=== PATIENT | female | born 1935 | race Caucasian/White ===

== ENCOUNTER 2021-06-21 05:05 | Observation (INO) | payer MEDICARE, OTHER ==
[~2021-06-21] VITALS: Ht 149.9 cm; Wt 80.4 kg
[~2021-06-21 05:05] MED LIST: ACEBUTCAFT PO; AMLO5 PO; CALCIUM 1,0001 EACH; CEPH500; CEPH500 PO; FURO40 PO; HYDACE5 PO; Hydrochloroth12.5 MG PO; LABE200 PO; LISI20 PO; LORA.5 PO; NAPR550 PO; Norco 5-325 Ta1 EACH PO; ONDA4ODT MM; OXYACE5T PO; POTA10T PO; Stool Softener100 MG; TEMA15 PO; THERA1 EACH PO; WARF2.5 PO; WARF5 PO
[2021-06-21 05:32] LABS: BASOPHILS ABSOLUTE AUTO 0.04 K/mm3 (0.00-0.23); BASOPHILS PERCENT AUTO 0 % (0-2); EOSINOPHILS ABSOLUTE AUTO 0.06 K/mm3 (0.00-0.68); EOSINOPHILS PERCENT AUTO 1 % (0-6); Hematocrit 38.9 % (33.0-51.0); Hemoglobin 12.9 g/dL (11.5-16.0); IMMATURE GRAN ABSOLUTE AUTO 0.05 K/mm3 (0.00-0.10); IMMATURE GRAN PERCENT AUTO 1 % (0-1); LYMPHOCYTES PERCENT AUTO 11 % (21-46); MONOCYTES ABSOLUTE AUTO 0.75 K/mm3 (0.16-1.47); MONOCYTES PERCENT AUTO 7 % (4-13); Mean Corpuscular HGB 30.6 pg (26.0-34.0); Mean Corpuscular HGB Conc 33.2 g/dL (31.5-36.5); Mean Corpuscular Volume 92 fL (80-100); Mean Platelet Volume 10.5 fL (9.1-12.4); NEUTROPHILS ABSOLUTE AUTO 8.99 K/mm3 (1.96-9.15); NEUTROPHILS PERCENT AUTO 81 % (41-73); Platelet Count 224 K/mm3 (150-400); RDW Coefficient Variation 13.5 % (11.7-14.2); RDW Standard Deviation 45.9 fL (35.1-46.3); Red Blood Cell Count 4.21 M/mm3 (3.80-5.20); White Blood Cell Count 11.09 K/mm3 (4.00-11.30)
[2021-06-21 05:49] LABS: International Normalized Ratio 2.21
[2021-06-21 05:50] LABS: Alanine Aminotransfer (ALT/SGP 20 U/L (12-78); Albumin, Blood 3.3 g/dL (3.4-5.0); Albumin/Globulin Ratio 0.8 (0.8-1.8); Alk Phos 87 U/L (50-136); Anion Gap 6 mmol/L (6-16); Aspartate Aminotrans (AST/SGOT 47 U/L (12-37); Bilirubin, Total 1.2 mg/dL (0.1-1.0); Blood Urea Nitrogen 12 mg/dL (8-24); Bun/Creatinine Ratio 14.7 (12.0-20.0); CO2, Blood 26 mmol/L (21-32); Chloride, Blood 110 mmol/L (98-108); Creatinine, Blood 0.82 mg/dL (0.40-1.00); Globulin, Blood 3.9 g/dL (2.2-4.0); Glomerular Filtration Rate >60 (60-); Glucose, Blood 126 mg/dL (70-99); Potassium, Blood 4.6 mmol/L (3.5-5.5); Sodium, Blood 142 mmol/L (136-145); Total Protein, Blood 7.2 g/dL (6.4-8.2)
[2021-06-21] MEDS ORDERED: MONT10T PO (15:05)
--- NOTE | 2021-06-21 18:28 | NUR ---
SHIFT SUMMARY THE PATIENT IS ALERT AND ORIENTED X4, PLEASANT AND COOPERATIVE WITH CARE. THE PATIENT ARRIVED ON THE MEDICAL FLOOR THIS MORNING. THE PATIENT IS A SBA TO THE BS. ON 3LPM OF OXYGEN CURRENTLY. TELE RUNNING AFIB AT 86. WARFARIN GIVEN THIS EVENING. THE PATIENT CALLS APPROPRIATELY. NO ACUTE CHANGES AT THIS TIME. CALL LIGHT WITHIN REACH. FAMILY AT BEDSIDE. THIS NURSE WILL CONTINUE CARE FOR THE PATIENT UNTIL SHIFT REPORT IS GIVEN TO ONCOMING NURSE.
--- NOTE | 2021-06-22 04:46 | NUR ---
Patient remained on 3L NC saturations 94-95%. Does complain of SOB on exertion. Lorazepam PRN given per pt request as she states she regularly takes at home. On telemetry a-fib with occasional periods of nonsustained RVR HR 140s-150s (per telephone answering service operator) on exertion, otherwise no new changes.
[2021-06-22 05:10] LABS: International Normalized Ratio 2.48; Prothrombin Time Results 24.5 Sec (9.7-11.5)
[2021-06-22 05:13] LABS: Anion Gap 6 mmol/L (6-16); Blood Urea Nitrogen 15 mg/dL (8-24); Bun/Creatinine Ratio 17.1 (12.0-20.0); CO2, Blood 29 mmol/L (21-32); Calcium, Blood 8.8 mg/dL (8.5-10.1); Chloride, Blood 106 mmol/L (98-108); Creatinine, Blood 0.88 mg/dL (0.40-1.00); Glomerular Filtration Rate >60 (60-); Glucose, Blood 98 mg/dL (70-99); Sodium, Blood 141 mmol/L (136-145)
[2021-06-22] MEDS ORDERED: Ocuvite Preser1 EACH PO (12:28)
[2021-06-22] MEDS ORDERED: CENTRUM SILVER1 EAC2 PO (12:28)
--- NOTE | 2021-06-22 14:56 | NUR ---
PATIENT DOING WELL TODAY, NO SOB, AMBULATING WELL. RT COMPLETED HOME 02 EVAL, NO OXYGEN NEEDED AT HOME. PT DISCHARGED TODAY. REVIEWED DISCHARGE SUMMARY, PT/DAUGHTER VERBILIZED UNDERSTANDING. PT LEFT FLOOR AT 1430.
== END 2021-06-22 14:45 | disposition home or self-care (01) ==
LOC: ER 05:05 → MEDS 08:01
PROVIDERS: Emergency Medicine; Nurse Practitioner Acute Care; ADMIT Hospitalist
DX: I11.0 Hypertensive heart disease with heart failure (principal); I50.9 Heart failure, unspecified; I48.91 Unspecified atrial fibrillation; I44.7 Left bundle-branch block, unspecified; E66.01 Morbid (severe) obesity due to excess calories; J96.01 Acute respiratory failure with hypoxia; I27.20 Pulmonary hypertension, unspecified; Z79.01 Long term (current) use of anticoagulants
CPT/HCPCS: 36415; 71045; 80048; 80053; 83735; 83880; 84443; 84484; 85025; 85610; 93005; 93010; 93306; 94760; 94761; 96374; 96375; 96376; 99285-25; A9270; G0378; J1940

== ENCOUNTER 2023-12-17 08:54 | Emergency (ER) | payer OTHER, MEDICARE ==
[~2023-12-17] VITALS: Ht 142.2 cm; Wt 78.9 kg
[~2023-12-17 08:54] MED LIST changes: +CENTRUM SILVER1 EAC2 PO; +MONT10T PO; +Ocuvite Preser1 EACH PO
[2023-12-17 09:13] VITALS: BP 158/130
[2023-12-17] MEDS ORDERED: HYDROcodone 5-APAP 325 TAB PO ONE (09:20)
[2023-12-17] MEDS ORDERED: Norco 5-325 Ta1 EACH PO (11:04)
== END 2023-12-17 12:05 | disposition home or self-care (01) ==
LOC: ER 08:54
DX: S22.32XA Fracture of one rib, left side, initial encounter for closed fracture (principal); I48.91 Unspecified atrial fibrillation; I10 Essential (primary) hypertension; W01.190A Fall on same level from slipping, tripping and stumbling with subsequent striking against furniture, initial encounter; Z85.038 Personal history of other malignant neoplasm of large intestine; Z79.01 Long term (current) use of anticoagulants; Z79.899 Other long term (current) drug therapy
CPT/HCPCS: 71046; 71100; 99283-25; A9270

== ENCOUNTER 2024-03-11 10:04 | Observation (INO) | payer MEDICARE, OTHER ==
[~2024-03-11] VITALS: Ht 149.9 cm; Wt 75.2 kg
[2024-03-11] MEDS ORDERED: NS 1,000 ML IV SCH ×3 (11:10→18:00)
[2024-03-11 11:36] LABS: BASOPHILS ABSOLUTE AUTO 0.02 K/mm3 (0.00-0.23); BASOPHILS PERCENT AUTO 0 % (0-2); EOSINOPHILS ABSOLUTE AUTO 0.04 K/mm3 (0.00-0.68); EOSINOPHILS PERCENT AUTO 0 % (0-6); Hematocrit 47.8 % (33.0-51.0); Hemoglobin 15.9 g/dL (11.5-16.0); IMMATURE GRAN ABSOLUTE AUTO 0.05 K/mm3 (0.00-0.10); IMMATURE GRAN PERCENT AUTO 1 % (0-1); LYMPHOCYTES ABSOLUTE AUTO 1.56 K/mm3 (0.84-5.20); LYMPHOCYTES PERCENT AUTO 15 % (21-46); MONOCYTES ABSOLUTE AUTO 0.65 K/mm3 (0.16-1.47); MONOCYTES PERCENT AUTO 6 % (4-13); Mean Corpuscular HGB 31.5 pg (26.0-34.0); Mean Corpuscular HGB Conc 33.3 g/dL (31.5-36.5); Mean Corpuscular Volume 95 fL (80-100); Mean Platelet Volume 9.3 fL (9.1-12.4); NEUTROPHILS ABSOLUTE AUTO 7.99 K/mm3 (1.96-9.15); NEUTROPHILS PERCENT AUTO 78 % (41-73); Platelet Count 255 K/mm3 (150-400); RDW Coefficient Variation 12.7 % (11.7-14.2); RDW Standard Deviation 44.8 fL (35.1-46.3); Red Blood Cell Count 5.05 M/mm3 (3.80-5.20); White Blood Cell Count 10.31 K/mm3 (4.00-11.30)
[2024-03-11 12:13] LABS: Albumin, Blood 3.7 g/dL (3.4-5.0); Albumin/Globulin Ratio 0.8 (0.8-1.8); Bilirubin, Total 0.7 mg/dL (0.1-1.0); Bun/Creatinine Ratio 28.1 (12.0-20.0); Calcium, Blood 9.9 mg/dL (8.5-10.1); Creatinine, Blood 2.1 mg/dL (0.40-1.00); Globulin, Blood 4.6 g/dL (2.2-4.0); Magnesium, Blood 2.4 mg/dL (1.6-2.4); Potassium, Blood 5.8 mmol/L (3.5-5.5); Total Protein, Blood 8.3 g/dL (6.4-8.2)
[2024-03-11] MEDS ORDERED: Insulin Regular 100 Unit/ML 1ML Dose IV ONE (14:55)
[2024-03-11] MEDS ORDERED: Sodium Bicarb 8.4% 1 MEQ/ML 50 ML Vial IV ONE (14:55)
[2024-03-11] MEDS ORDERED: Calcium Gluconate 10% 100 MG/ML INJ IV ONE (14:55)
[2024-03-11] MEDS ORDERED: Dextrose 50% 50 ML Syringe IV ONE (15:00)
[2024-03-11] MEDS ORDERED: Sodium Zirconium Cyclosilicate 10 GM Packet PO ONE (15:00)
[2024-03-11] MEDS ORDERED: Dextrose 50% 50 ML Vial IV ONE (15:25)
[2024-03-11] MEDS ORDERED: FLU VACC TS2024-25(6MOS UP)/PF 45 MCG/0.5 ML SYRINGE IM PRN (17:10)
[2024-03-11] MEDS ORDERED: Ondansetron 4 MG TAB PO PRN (17:10)
[2024-03-11] MEDS ORDERED: Metoprolol Tartrate 25 MG Tab PO SCH (18:00)
[2024-03-11] MEDS ORDERED: METO25ER PO (20:41)
[2024-03-11] MEDS ORDERED: METO50ER PO (20:42)
[2024-03-11] MEDS ORDERED: LOSA50 PO (20:44)
[2024-03-11] MEDS ORDERED: SPIR25 PO (20:46)
[2024-03-11] MEDS ORDERED: LORazepam 0.5 MG Tab PO SCH (21:00)
[2024-03-11 21:30] VITALS: BP 135/116
[2024-03-11 21:36] VITALS: BP 148/75
[2024-03-12 02:51] LABS: BASOPHILS ABSOLUTE AUTO 0.03 K/mm3 (0.00-0.23); BASOPHILS PERCENT AUTO 0 % (0-2); EOSINOPHILS ABSOLUTE AUTO 0.08 K/mm3 (0.00-0.68); EOSINOPHILS PERCENT AUTO 1 % (0-6); Hematocrit 42.5 % (33.0-51.0); Hemoglobin 14.2 g/dL (11.5-16.0); IMMATURE GRAN ABSOLUTE AUTO 0.04 K/mm3 (0.00-0.10); IMMATURE GRAN PERCENT AUTO 0 % (0-1); LYMPHOCYTES ABSOLUTE AUTO 1.96 K/mm3 (0.84-5.20); LYMPHOCYTES PERCENT AUTO 21 % (21-46); MONOCYTES ABSOLUTE AUTO 0.88 K/mm3 (0.16-1.47); MONOCYTES PERCENT AUTO 9 % (4-13); Mean Corpuscular HGB 31.5 pg (26.0-34.0); Mean Corpuscular HGB Conc 33.4 g/dL (31.5-36.5); Mean Corpuscular Volume 94 fL (80-100); Mean Platelet Volume 9.5 fL (9.1-12.4); NEUTROPHILS ABSOLUTE AUTO 6.53 K/mm3 (1.96-9.15); NEUTROPHILS PERCENT AUTO 69 % (41-73); Platelet Count 219 K/mm3 (150-400); RDW Coefficient Variation 12.6 % (11.7-14.2); RDW Standard Deviation 43.9 fL (35.1-46.3); Red Blood Cell Count 4.51 M/mm3 (3.80-5.20); White Blood Cell Count 9.52 K/mm3 (4.00-11.30)
[2024-03-12 03:19] LABS: Albumin, Blood 3.2 g/dL (3.4-5.0); Albumin/Globulin Ratio 0.8 (0.8-1.8); Bilirubin, Total 0.4 mg/dL (0.1-1.0); Calcium, Blood 9.5 mg/dL (8.5-10.1); Creatinine, Blood 1.5 mg/dL (0.40-1.00); Globulin, Blood 4.1 g/dL (2.2-4.0); Total Protein, Blood 7.3 g/dL (6.4-8.2)
[2024-03-12 05:36] VITALS: BP 146/75
[2024-03-12 07:53] VITALS: BP 166/139
[2024-03-12 07:57] VITALS: BP 135/78
[2024-03-12] MEDS ORDERED: Warfarin Sodium 2.5 MG Tab PO SCH (09:00)
[2024-03-12] MEDS ORDERED: Metoprolol Tartrate 25 MG Tab PO SCH (09:00)
[2024-03-12] MEDS ORDERED: Multivitamins/Minerals 1 Tab PO SCH (09:17)
[2024-03-12] MEDS ORDERED: [UNRECOGNIZED DRUG - OTHER] PO SCH (09:18)
[2024-03-12 10:37] LABS: International Normalized Ratio 2.09; Prothrombin Time Results 21.2 Sec (9.7-11.5)
[2024-03-12 13:09] LABS: Bun/Creatinine Ratio 31.5 (12.0-20.0); Creatinine, Blood 1.24 mg/dL (0.40-1.00); Potassium, Blood 4.7 mmol/L (3.5-5.5)
--- NOTE | 2024-03-12 17:32 | NUR ---
DISCHARGE NOTE PATIENT A/OX4, ABLE TO MAKE NEEDS KNOWN. PLEASANT AND COOPERATVIE WITH STAFF. STAND BY ASSIST WITH AMBULATION. DISCHARGE INSTRUCTIONS DISCUSSED WITH PATIENT AND HER DAUGHTER WHO PATIENT STATES "HANDLES HER MEDS". PATIENT ADN DAUGHTER AGREEABLE TO DISCHAREG PLAN. NO OTHER CONCERNS AT THIS TIME. IVs REMOVED PRIOR TO DISCHARGE. PATIENT ASSISTED TO FAMILY VEHICLE VIA WHEELCHAIR.
[2024-03-12] MEDS ORDERED: Warfarin Sodium 2.5 MG Tab PO ONE (18:00)
== END 2024-03-12 16:16 | disposition home or self-care (01) ==
LOC: ER 10:04 → ERHOLD 10:05 → MEDS 21:16 → ENPENDDIS 03-12 14:38 → MEDS 03-12 16:16
PROVIDERS: Student in an Organized Health Care Education/Training Program; ADMIT Internal Medicine
DX: N17.9 Acute kidney failure, unspecified (principal); E87.5 Hyperkalemia; I10 Essential (primary) hypertension; I48.91 Unspecified atrial fibrillation; Z66 Do not resuscitate; Z79.01 Long term (current) use of anticoagulants; Z79.899 Other long term (current) drug therapy; Z90.49 Acquired absence of other specified parts of digestive tract; Z90.710 Acquired absence of both cervix and uterus
CPT/HCPCS: 36415; 80048; 80053; 82947; 83735; 85025; 85610; 93005; 93010; 96361; 96374; 96375; 99285-25; A9270; G0378; J0612; J1815; J7030; J7799

== ENCOUNTER 2024-05-13 20:04 | Emergency (ER) | payer MEDICARE, OTHER ==
[~2024-05-13] VITALS: Ht 160 cm; Wt 99.8 kg
[~2024-05-13 20:04] MED LIST changes: +LOSA50 PO; +METO25ER PO; +METO50ER PO; +SPIR25 PO
[2024-05-13 20:45] LABS: BASOPHILS ABSOLUTE AUTO 0.05 K/mm3 (0.00-0.23); BASOPHILS PERCENT AUTO 1 % (0-2); EOSINOPHILS ABSOLUTE AUTO 0.18 K/mm3 (0.00-0.68); EOSINOPHILS PERCENT AUTO 2 % (0-6); Hematocrit 42.2 % (33.0-51.0); Hemoglobin 13.8 g/dL (11.5-16.0); IMMATURE GRAN ABSOLUTE AUTO 0.04 K/mm3 (0.00-0.10); IMMATURE GRAN PERCENT AUTO 0 % (0-1); LYMPHOCYTES ABSOLUTE AUTO 2.44 K/mm3 (0.84-5.20); LYMPHOCYTES PERCENT AUTO 24 % (21-46); MONOCYTES ABSOLUTE AUTO 1.12 K/mm3 (0.16-1.47); MONOCYTES PERCENT AUTO 11 % (4-13); Mean Corpuscular HGB 31.1 pg (26.0-34.0); Mean Corpuscular HGB Conc 32.7 g/dL (31.5-36.5); Mean Corpuscular Volume 95 fL (80-100); Mean Platelet Volume 9.3 fL (9.1-12.4); NEUTROPHILS ABSOLUTE AUTO 6.23 K/mm3 (1.96-9.15); NEUTROPHILS PERCENT AUTO 62 % (41-73); Platelet Count 257 K/mm3 (150-400); RDW Coefficient Variation 13.6 % (11.7-14.2); RDW Standard Deviation 47.2 fL (35.1-46.3); Red Blood Cell Count 4.44 M/mm3 (3.80-5.20); White Blood Cell Count 10.06 K/mm3 (4.00-11.30)
[2024-05-13 21:13] LABS: Albumin, Blood 3.5 g/dL (3.4-5.0); Albumin/Globulin Ratio 0.8 (0.8-1.8); Bilirubin, Total 0.4 mg/dL (0.1-1.0); Globulin, Blood 4.2 g/dL (2.2-4.0); Potassium, Blood 3.6 mmol/L (3.5-5.5); Total Protein, Blood 7.7 g/dL (6.4-8.2)
[2024-05-13 22:17] LABS: Source, Urine Clean Catch
[2024-05-13 22:20] LABS: Appearance, Urine Hazy (Clear); Bilirubin, Urine Neg (Neg); Blood, Urine 1+ (Neg); Color, Urine Yellow (P-Yellow); Glucose Qualitative, Urine Neg (Neg); Ketones, Urine Neg (Neg); Leukocyte Esterase, Urine 3+ (Neg); Nitrite, Urine Neg (Neg); Protein, Urine Neg (Neg); Urobilinogen, Urine NORM (Normal)
[2024-05-13 22:29] LABS: Bacteria Many /hpf; Squamous Epithelial Cells Mod /hpf (Few)
[2024-05-13] MEDS ORDERED: Cephalexin Monohydrate 500 MG Cap PO ONE (22:45)
[2024-05-13] MEDS ORDERED: CEPH500 PO (22:48)
[2024-05-13 23:00] VITALS: BP 192/117
== END 2024-05-13 23:12 | disposition home or self-care (01) ==
LOC: ER 20:04
PROVIDERS: Student in an Organized Health Care Education/Training Program
DX: G93.40 Encephalopathy, unspecified (principal); N30.00 Acute cystitis without hematuria; E87.1 Hypo-osmolality and hyponatremia; I10 Essential (primary) hypertension; I48.91 Unspecified atrial fibrillation; Z79.899 Other long term (current) drug therapy; Z79.01 Long term (current) use of anticoagulants
CPT/HCPCS: 80053; 81001; 85025; 87086; 93005; 93010; 99285-25; A9270

== ENCOUNTER 2024-05-23 13:51 | Emergency (ER) | payer MEDICARE, OTHER ==
[~2024-05-23] VITALS: Ht 149.9 cm; Wt 77.1 kg
[2024-05-23 15:11] LABS: BASOPHILS ABSOLUTE AUTO 0.04 K/mm3 (0.00-0.23); BASOPHILS PERCENT AUTO 0 % (0-2); EOSINOPHILS ABSOLUTE AUTO 0.12 K/mm3 (0.00-0.68); EOSINOPHILS PERCENT AUTO 1 % (0-6); Hematocrit 42.6 % (33.0-51.0); IMMATURE GRAN ABSOLUTE AUTO 0.03 K/mm3 (0.00-0.10); IMMATURE GRAN PERCENT AUTO 0 % (0-1); LYMPHOCYTES ABSOLUTE AUTO 1.75 K/mm3 (0.84-5.20); LYMPHOCYTES PERCENT AUTO 19 % (21-46); MONOCYTES ABSOLUTE AUTO 0.69 K/mm3 (0.16-1.47); MONOCYTES PERCENT AUTO 7 % (4-13); Mean Corpuscular HGB 31.3 pg (26.0-34.0); Mean Corpuscular HGB Conc 32.9 g/dL (31.5-36.5); Mean Corpuscular Volume 95 fL (80-100); Mean Platelet Volume 9.5 fL (9.1-12.4); NEUTROPHILS ABSOLUTE AUTO 6.72 K/mm3 (1.96-9.15); NEUTROPHILS PERCENT AUTO 72 % (41-73); Platelet Count 215 K/mm3 (150-400); RDW Coefficient Variation 13.5 % (11.7-14.2); RDW Standard Deviation 47.7 fL (35.1-46.3); Red Blood Cell Count 4.47 M/mm3 (3.80-5.20); White Blood Cell Count 9.35 K/mm3 (4.00-11.30)
[2024-05-23 15:41] LABS: Albumin, Blood 3.5 g/dL (3.4-5.0); Albumin/Globulin Ratio 0.9 (0.8-1.8); Bilirubin, Total 0.9 mg/dL (0.1-1.0); Bun/Creatinine Ratio 22.7 (12.0-20.0); Calcium, Blood 9.5 mg/dL (8.5-10.1); Creatinine, Blood 0.88 mg/dL (0.40-1.00); Globulin, Blood 4.1 g/dL (2.2-4.0); Potassium, Blood 4.7 mmol/L (3.5-5.5); Total Protein, Blood 7.6 g/dL (6.4-8.2)
[2024-05-23] MEDS ORDERED: Labetalol HCL 5 MG/ML 4ML Injection (Single Dose) IV ONE (19:35)
[2024-05-23] MEDS ORDERED: SPIR25 PO (19:43)
[2024-05-23] MEDS ORDERED: METOPROLOL TART25 MG PO (19:45)
[2024-05-23 20:50] VITALS: BP 202/112
== END 2024-05-23 21:00 | disposition home or self-care (01) ==
LOC: ER 13:51
PROVIDERS: Student in an Organized Health Care Education/Training Program
DX: I10 Essential (primary) hypertension (principal); I48.91 Unspecified atrial fibrillation; Z79.899 Other long term (current) drug therapy
CPT/HCPCS: 71046; 80053; 84484; 85025; 93005; 93010; 96374; 99284-25

== ENCOUNTER → 2024-06-11 | Outpatient (CLI) | payer MEDICARE ==
[~2024-06-11] MED LIST changes: +METOPROLOL TART25 MG PO
[2024-06-11 14:23] LABS: Creatinine Urine 75.6 mg/dL (27.00-270.00); Microalbumin, Urine Quant. 6.76 mg/L (0.000-20.000); Protein, Urine Quantitative 8.5 mg/dL (0.0-11.9)
== END ==
LOC: LAB SHORT 06:00 → LAB 06:00
PROVIDERS: Internal Medicine Nephrology
DX: N18.30 Chronic kidney disease, stage 3 unspecified (principal); D63.1 Anemia in chronic kidney disease; N25.81 Secondary hyperparathyroidism of renal origin; E55.9 Vitamin D deficiency, unspecified; E78.00 Pure hypercholesterolemia, unspecified; D51.8 Other vitamin B12 deficiency anemias; G60.9 Hereditary and idiopathic neuropathy, unspecified; D50.9 Iron deficiency anemia, unspecified
CPT/HCPCS: 81050; 82043; 82570; 84156

== ENCOUNTER 2024-08-31 20:59 | Observation (INO) | payer MEDICARE ==
[~2024-08-31] VITALS: Ht 152.4 cm; Wt 75.8 kg
[2024-08-31] MEDS ORDERED: SPIRONOLACTONE1 EACH PO (21:40)
[2024-08-31 21:55] LABS: BASOPHILS ABSOLUTE AUTO 0.04 K/mm3 (0.00-0.23); BASOPHILS PERCENT AUTO 1 % (0-2); EOSINOPHILS ABSOLUTE AUTO 0.07 K/mm3 (0.00-0.68); EOSINOPHILS PERCENT AUTO 1 % (0-6); Hematocrit 43.7 % (33.0-51.0); IMMATURE GRAN ABSOLUTE AUTO 0.02 K/mm3 (0.00-0.10); IMMATURE GRAN PERCENT AUTO 0 % (0-1); LYMPHOCYTES ABSOLUTE AUTO 1.89 K/mm3 (0.84-5.20); LYMPHOCYTES PERCENT AUTO 23 % (21-46); MONOCYTES ABSOLUTE AUTO 0.72 K/mm3 (0.16-1.47); MONOCYTES PERCENT AUTO 9 % (4-13); Mean Corpuscular HGB 31.3 pg (26.0-34.0); Mean Corpuscular Volume 98 fL (80-100); Mean Platelet Volume 9.4 fL (9.1-12.4); NEUTROPHILS ABSOLUTE AUTO 5.58 K/mm3 (1.96-9.15); NEUTROPHILS PERCENT AUTO 67 % (41-73); Platelet Count 186 K/mm3 (150-400); RDW Coefficient Variation 12.9 % (11.7-14.2); RDW Standard Deviation 46.1 fL (35.1-46.3); Red Blood Cell Count 4.48 M/mm3 (3.80-5.20); White Blood Cell Count 8.32 K/mm3 (4.00-11.30)
[2024-08-31 22:07] LABS: Source, Urine Straight Cath
[2024-08-31 22:11] LABS: Bilirubin, Urine Neg (Neg); Blood, Urine Neg (Neg); Glucose Qualitative, Urine Neg (Neg); Ketones, Urine Neg (Neg); Leukocyte Esterase, Urine Neg (Neg); Nitrite, Urine Neg (Neg); Protein, Urine 1+ (Neg); Specific Gravity, Urine 1.025 (1.003-1.022); Urobilinogen, Urine NORM (Normal)
[2024-08-31 22:17] LABS: Albumin, Blood 3.6 g/dL (3.4-5.0); Albumin/Globulin Ratio 0.9 (0.8-1.8); Bilirubin, Total 0.4 mg/dL (0.1-1.0); Bun/Creatinine Ratio 30.4 (12.0-20.0); Creatinine, Blood 1.25 mg/dL (0.40-1.00); Globulin, Blood 3.9 g/dL (2.2-4.0); Potassium, Blood 4.2 mmol/L (3.5-5.5); Total Protein, Blood 7.5 g/dL (6.4-8.2)
[2024-08-31 22:18] LABS: Appearance, Urine Clear (Clear); Color, Urine Yellow (P-Yellow)
[2024-08-31 23:28] LABS: Acetaminophen, Random 8.8 ug/mL (10.0-30.0); Salicylate 8.5 mg/dL (2.8-20.0)
[2024-08-31 23:33] LABS: Base Excess Venous -4.4 mmol/L; Bicarbonate Venous 21.1 mmol/L (24.0-30.0); pH Blood Venous 7.36 (7.34-7.37)
[2024-08-31 23:51] LABS: Thyroid Stimulating Hormone 5.1 uIU/mL (0.360-4.800)
[2024-09-01 00:08] LABS: U Amphetamine Screen Not Detected; U Barbituate Screen Not Detected; U Benzodiazapine Screen DETECTED; U Buprenorphine Screen Not Detected; U Cannabinoids Screen Not Detected; U Cocaine Screen Not Detected; U Methadone Screen Not Detected; U Methamphetamine Screen Not Detected; U Opiates Screen Not Detected; U Oxycodone Screen Not Detected; U Phencyclidine Screen Not Detected
[2024-09-01] MEDS ORDERED: LORazepam 1 MG Tab PO ONE (01:05)
[2024-09-01] MEDS ORDERED: NS 1,000 ML IV ONE ×2 (03:00→03:05)
[2024-09-01 05:58] LABS: Albumin, Blood 3.6 g/dL (3.4-5.0); Albumin/Globulin Ratio 0.9 (0.8-1.8); Bilirubin, Total 0.4 mg/dL (0.1-1.0); Bun/Creatinine Ratio 37.3 (12.0-20.0); Calcium, Blood 9.5 mg/dL (8.5-10.1); Creatinine, Blood 1.18 mg/dL (0.40-1.00); Total Protein, Blood 7.6 g/dL (6.4-8.2)
[2024-09-01] MEDS ORDERED: Enoxaparin 40 MG/0.4 ML SYR SC SCH (09:00)
[2024-09-01 09:38] LABS: Phosphorus, Blood 4.2 mg/dL (2.5-4.9)
[2024-09-01] MEDS ORDERED: LORazepam 0.5 MG Tab PO PRN (11:10)
[2024-09-01 13:31] VITALS: BP 150/88
[2024-09-01] MEDS ORDERED: WARF2.5 PO (15:46)
[2024-09-01] MEDS ORDERED: TYLENOL PM PO (15:47)
[2024-09-01 15:55] VITALS: BP 149/76
[2024-09-01 20:17] VITALS: BP 154/91
[2024-09-01] MEDS ORDERED: Losartan Potassium 50 MG Tab PO SCH (21:00)
[2024-09-01] MEDS ORDERED: Metoprolol Tartrate 25 MG Tab PO SCH (21:00)
[2024-09-01 23:56] VITALS: BP 137/51
[2024-09-02 04:47] VITALS: BP 162/84
[2024-09-02 05:42] LABS: BASOPHILS ABSOLUTE AUTO 0.03 K/mm3 (0.00-0.23); BASOPHILS PERCENT AUTO 0 % (0-2); EOSINOPHILS ABSOLUTE AUTO 0.15 K/mm3 (0.00-0.68); EOSINOPHILS PERCENT AUTO 2 % (0-6); Hematocrit 47.2 % (33.0-51.0); IMMATURE GRAN ABSOLUTE AUTO 0.02 K/mm3 (0.00-0.10); IMMATURE GRAN PERCENT AUTO 0 % (0-1); LYMPHOCYTES ABSOLUTE AUTO 1.57 K/mm3 (0.84-5.20); LYMPHOCYTES PERCENT AUTO 21 % (21-46); MONOCYTES ABSOLUTE AUTO 0.64 K/mm3 (0.16-1.47); MONOCYTES PERCENT AUTO 9 % (4-13); Mean Corpuscular HGB 31.3 pg (26.0-34.0); Mean Corpuscular HGB Conc 31.8 g/dL (31.5-36.5); Mean Corpuscular Volume 99 fL (80-100); Mean Platelet Volume 9.6 fL (9.1-12.4); NEUTROPHILS ABSOLUTE AUTO 5.01 K/mm3 (1.96-9.15); NEUTROPHILS PERCENT AUTO 68 % (41-73); Platelet Count 154 K/mm3 (150-400); RDW Coefficient Variation 12.9 % (11.7-14.2); RDW Standard Deviation 46.9 fL (35.1-46.3); Red Blood Cell Count 4.79 M/mm3 (3.80-5.20); White Blood Cell Count 7.42 K/mm3 (4.00-11.30)
[2024-09-02 06:05] LABS: Bun/Creatinine Ratio 29.6 (12.0-20.0); Calcium, Blood 8.8 mg/dL (8.5-10.1); Creatinine, Blood 1.08 mg/dL (0.40-1.00); Potassium, Blood 4.3 mmol/L (3.5-5.5)
--- NOTE | 2024-09-02 06:27 | NUR ---
SHIFT SUMMARY A&O X2. VSS. ABLE TO WALK W/ FWW MINIMAL ASSIST & ABLE TO DO IT HERSELF AT NIGHT THEN REINFORCED TO USE CALL HENDRICKS AND PUT BED ALARM ON SHE APPEARS CONVERSANT BUT FORGETFUL AND SOMETIMES STUBBORN OF INSTRUCTIONS EVEN IF REPEATEDLY TOLD. ON TELE AF READING AT THE 70S. RESTED WELL AT NIGHT BUT OCCASIONALLY GETTING UP TO URINATE AT THE BATHROOM.
[2024-09-02 07:46] VITALS: BP 150/75
[2024-09-02] MEDS ORDERED: Spironolactone 50 MG Tab PO SCH (09:00)
[2024-09-02] MEDS ORDERED: Spironolactone 25 MG Tab PO SCH (09:00)
[2024-09-02] MEDS ORDERED: HydroCHLOROthiazide 25 mg Tab PO SCH (09:00)
--- NOTE | 2024-09-02 16:32 | NUR ---
DISCHARGE SUMMARY: PT IS AOX2. ABLE TO WALK TO BATHROOM WITH SBA AND WALKER. PT DISCHARGED HOME WITH HOME HEALTH AND FAMILY. IV AND TELLY DISCONTINUED. NO NEW MEDS FAXED. DISCHARGE EDUCATION PROVIDED WITH FAMILY AT BEDSIDE. WHEELCHAIR PROVIDED BY ALICE AT DISCHARGE.
== END 2024-09-02 16:54 | disposition home health service (06) ==
LOC: ER 20:59 → ERHOLD 21:00 → MEDS 21:00 → ER 21:00 → ERHOLD 21:00 → EDBEDREQ 09-01 04:31 → MEDS 09-01 13:17
PROVIDERS: Emergency Medicine; Family Medicine; Student in an Organized Health Care Education/Training Program; ADMIT Internal Medicine
DX: G92.8 Other toxic encephalopathy (principal); I13.0 Hypertensive heart and chronic kidney disease with heart failure and stage 1 through stage 4 chronic kidney disease, or unspecified chronic kidney disease; I50.30 Unspecified diastolic (congestive) heart failure; N18.32 Chronic kidney disease, stage 3b; I48.91 Unspecified atrial fibrillation; E03.9 Hypothyroidism, unspecified
CPT/HCPCS: 36415; 51701; 80048; 80053; 82803; 83735; 83880; 83930; 84100; 84439; 84443; 84484; 85025; 93005; 93010; 93306; 99285-25; A6590; A9270; G0378; G0480; J7030